=== PATIENT | female | born 1955 | race Caucasian/White ===

== ENCOUNTER → 2017-06-02 | Outpatient (CLI) | payer OTHER ==
[~2017-06-02] MED LIST: CIPR-255 PO; LEVO25TA5 PO; RANITAB33 PO
--- NOTE | 2017-06-03 07:38 | MAMMOGRAPHY REPORT ---
BILATERAL DIGITAL SCREENING MAMMOGRAM TOMOSYNTHESIS WITH CAD: 06/02/2017 CLINICAL HISTORY: Routine screening. TECHNIQUE: Breast tomosynthesis in addition to standard 2D mammography was performed. Current study was also evaluated with a Computer Aided Detection (CAD) system. COMPARISON: Comparison is made to exams dated: 05/29/2016 mammogram, 05/28/2015 mammogram, 05/24/2014 mamm ogram, 05/23/2013 mammogram, 05/20/2012 mammogram, and 05/19/2011 mammogram - [facility] BREAST COMPOSITION: There are scattered areas of fibroglandular density in both breasts. FINDINGS: There are stable intramammary lymph nodes in each upper outer quadrant. No suspicious mass , architectural distortion or cluster of microcalcifications is seen. IMPRESSION: ACR BI-RADS CATEGORY 1: NEGATIVE There is no mammographic evidence of malignancy. A 1 year screening mammogram is recommended. The pa tient will receive written notification of the results. Approximately 10% of breast cancers are not detected with mammography. A negative mammographic report should not delay biopsy if a clinically suggestive mass is present. Sandra Manzo M.D. ay/:06/02/2017 16:25:30 Hide Spreader: Adelina MARKS(Lesly)(Ignacio), [facility] letter sent: Normal 1/2 BI-RADS Code: ACR BI-RADS Category 1: Negative
== END | disposition home or self-care (01) ==
LOC: C.MAMM 08:56
PROVIDERS: ATTEND Family Medicine
DX: Z12.31 Encounter for screening mammogram for malignant neoplasm of breast (principal)

== ENCOUNTER → 2017-11-24 | Outpatient (CLI) | payer OTHER ==
[~2017-11-24] MED LIST changes: +OPTIRAY 320 IV PRN
--- NOTE | 2017-11-24 14:13 | DIAGNOSTIC IMAGING REPORT ---
(CHEST FOR PE) ANGIO WITH CLINICAL HISTORY: 62 years-old Female presenting with R04.2 [id number]. TECHNIQUE: Multidetector CT angiography of the chest was performed after administration of intravenous contrast. 3-D volumetric and/or maximum intensity projection (MIP) images were subsequently reconstructed for review. IV contrast: 83 mL of Optiray 320. A dose lowering technique was used consistent with the principles of ALARA (as low as reasonably achievable). COMPARISON: Chest CT from 07/29/2017. CT DOSE (mGy.cm): The estimated cumulative dose is 380.81 mGy.cm. FINDINGS: Equine Intern topogram: Cholecystectomy clips. Pulmonary vasculature: The study is adequate for assessment of the pulmonary vascular tree. No filling defect within the pulmonary arteries to suggest embolus. Main pulmonary artery is not enlarged. No flattening of the interventricular septum. No intracardiac filling defect. No reflux of contrast into the hepatic veins. Remaining chest: On soft tissue windows, normal thyroid and thoracic inlet. No axillary, supraclavicular, hilar, or mediastinal lymphadenopathy. Normal aorta. Mild multichamber enlargement of the heart. Coronary artery calcification. No pericardial or pleural effusion. Well-defined hypodensity in the right hepatic lobe likely hepatic cyst though indeterminate. Biliary ductal prominence suggested. On lung windows, minimal dependent changes likely atelectasis. Mosaic attenuation noted at the lung bases, which may be due to the phase of respiration or small airways disease. No other focal nodule or infiltrate. Mild lower lobe predominant bronchial wall thickening. On bone windows, degenerative changes of the spine. IMPRESSION: 1. No evidence of pulmonary embolus. 2. Mosaic attenuation at the lung bases could suggest small airways disease or may be due to the phase of respiration. 3. Mild lower lobe predominant bronchial wall thickening. This is not specific and can be seen in the setting of congestive change or bronchitis among other etiologies. 4. Mild cardiomegaly. Electronically signed by: Etienne Turner M.D. 11/24/2017 2:12 PM Dictated Date/Time: 11/24/2017 1:54 PM
== END | disposition home or self-care (01) ==
LOC: C.CTS 12:59
PROVIDERS: ATTEND Physician Assistant
DX: R04.2 Hemoptysis (principal); R91.8 Other nonspecific abnormal finding of lung field

== ENCOUNTER 2017-11-30 07:19 | Day surgery (SDC) | payer OTHER ==
[2017-11-30] VITALS (7 sets, daily range): BP systolic 126–166; BP diastolic 72–82; PULSE 61–77; TEMP 36.2–36.9; O2SAT 94–98; Ht 167.6 cm; Wt 81.8 kg
[~2017-11-30] VITALS: Ht 167.6 cm; Wt 81.8 kg
[~2017-11-30 07:19] MED LIST changes: -OPTIRAY 320 IV PRN
--- NOTE | 2017-11-30 07:31 | History and Physical ---
History & Physical Date of Service Nov 30, 2017. History & Physical 62-yo female presents today for bronchoscopic evaluation for her chronic cough with hemoptysis. 62-year-old female presents the office for continuation of care of hemoptysis. Prior records reviewed. PmHx includes: History of irritable bowel syndrome, migraine headaches, hypothyroid, GERD, and allergic rhinitis - lau emi. She does wear 1 liter of oxygen q.h.s. Exposures: - Remote h/o tobacco (quit ) with significant second hand exposure through father and co-workers. - Prior occupation: working in sterile processing in a hospital setting - patient compliant with respiratory protection, routine TB testing negative - x 5-years living with coal stove Beginning in the Summer 2016 patient developed symptoms of cough which progressed to become productive with associated wheeze and chest congestion. She reported sick contact - grandson without travel at that time. She denied any preceding symptoms of chronic cough/dyspnea/asthma/or frequent respiratory infections. Symptoms persisted despite benzoate. Chest congestion and wheeze resolved post 40mg prednisone x 5 days + azithromycin. Cough however persisted primarily in the mornings associated with streaks of bright red blood. No associated dyspnea, fevers, chills, pleuritic pain or dyspnea. CT Chest 07/29/17 with IV contrasted noted some atelectasis but otherwise was unremarkable. At the time of her initial evaluation, she reported clinical improvement. Cough remained presents in the AM however hemoptysis seemed to have discontinued. Bronchoscopy and further w/u offered= discussed and patient declined secondary to clinical improvement. Exam/interview today patient presents to follow-up her symptoms. She reports that her cough productive of scant blood tinged sputum past present in the morning has in fact persisted. This is very scant. She denies any associated epistaxis or chronic sinus problems. She denies any history of frequent emesis or retching. Today she does report history of coughing during p.o. intake. She is on Prilosec 20 milligram daily. She denies any davy symptoms of acid reflux or frequent belching. She denies any nocturnal symptoms of cough. She denies any chest pain or associated shortness of breath, MATHUR, fevers or chills. Review of Systems Constitutional: no fever, not feeling poorly, no chills and not feeling tired. Eyes: dryness of the eyes and itching of the eyes, but no eye pain and no eyesight problems. ENT: no earache, no nosebleeds, no sore throat, no nasal discharge and no hoarseness. Cardiovascular: no chest pain, no palpitations and no lower extremity edema. Respiratory: cough, but as noted in HPI, no shortness of breath, no orthopnea, no wheezing, no shortness of breath during exertion and no PND. Gastrointestinal: heartburn, but as noted in HPI and no abdominal pain. Musculoskeletal: negative. Psychiatric: no sleep disturbances. Hematologic/Lymphatic: no swollen glands, no tendency for easy bleeding, no tendency for easy bruising and no swollen glands in the neck. Past Medical History 1. History of allergic rhinitis 2. History of gastroesophageal reflux (GERD) 3. History of hypothyroidism 4. History of insomnia 5. History of menopause 6. History of migraine with aura Surgical History 1. History of colonoscopy 2. History of gallbladder surgery 3. History of hysterectomy 4. History of rotator cuff repair Family History 1. Family history of 2. Family history of diabetes mellitus 3. Family history of hypertension 4. Family history of 5. Family history of cerebrovascular accident (CVA) 6. Family history of diabetes mellitus 7. Family history of diabetes mellitus Social History Does not use smokeless tobacco Never smoker Current Meds 1. Fluzone Quadrivalent Intramuscular Suspension 2. Albuterol Sulfate (2.5 MG/3ML) 0.083% Inhalation Nebulization Solution; USE 1 UNIT DOSE IN NEBULIZER EVERY 4 TO 6 HOURS NEEDED 3. Benzonatate 100 MG Oral Capsule; TAKE 1 CAPSULE 3 TIMES DAILY 4. Cromolyn Sodium 4 % Ophthalmic Solution; INSTILL 1 DROP INTO EACH EYE 4 TIMES DAILY AT REGULAR INTERVALS 5. Imitrex 100 MG Oral Tablet; TAKE 1 TABLET AT ONSET OF MIGRAINE HEADACHE. MAY REPEAT IN 2 HOURS IF NEEDED 6. Levothyroxine Sodium 100 MCG Oral Tablet; TAKE 1 TABLET DAILY DIRECTED 7. Omeprazole 20 MG Oral Capsule Delayed Release; TAKE ONE CAPSULE BY MOUTH ONE EVERY OTHER DAY Allergies 1. Erythromycin Derivatives Immunizations Influenza --- Series1: -Jul-2017 Vital Signs Weight: 185 lb 4 oz BMI Calculated: 29.9 BSA Calculated: 1.94 Blood Pressure: 130 / 84 Heart Rate: 70 Respiration: 18 O2 Saturation: 97, RA Temperature: 98.2 F Physical Exam Constitutional: Well developed, well nourished female. No acute distress. Head: + facial symmetry Eyes: EOMi, PERRLA, no conjunctival injection Mouth: Mallampati [I]. No erythema, exudate, or post nasal gtt Neck: Trachea midline. No adenopathy or masses Respiratory: Non-labored respirations. No wheeze, rales or rhonchi. No clubbing or cyanosis. Cardiovascular: RRR, no MRG. +2 radial pulses. <1s capillary refill. Abdomen: soft, active bowel sounds Integumentary: no rashes, or ecchymosis MSK/Extremities: Moving and developed symmetrically. No edema. No calf tenderness. Neurologic: A&O, data recall in-tact. Appropriate affect.
--- NOTE | 2017-11-30 08:37 | Pre Sedation Assessment ---
Pre Sedation Assessment General Date of Sedation: Nov 30, 2017. Vital Signs Past 12 Hours Date Time Temp Pulse Resp B/P (MAP) Pulse Ox O2 Delivery O2 Flow Rate FiO2 11/30/17 08:12 36.5 77 18 166/79 (108) 97 Room Air Review Cardiovascular: regular rate, rhythm, no edema, no gallop, no JVD, no murmur, normal peripheral pulses Lungs: chest non-tender, lungs clear, normal breath sounds, no respiratory distress, no accessory muscle use Pre-Sedation Airway Assessment Smoking Status: Never Smoker Hx of Sleep Apnea: No Hx of difficult intubation: No Short Thick Neck: Yes Thyro-mental Distance: < or =3 Finger Breadths Oral Cavity: Dentures ASA Classification: Class II NPO Status Date of Last Intake of Fluids: Nov 29, 2017 Time of Last Intake of Fluids: 2199 Date of Last Intake of Solids: Nov 29, 2017 Time of Last Intake of Solids: 2199 Procedure Planning Contraindications for Sedation: None Current Medications Reviewed: Yes Notes The planned sedation has been discussed with the patient. Informed Consent was obtained. I have identified the patient, determined the appropriateness of sedation and have assessed the patient immediately prior to the procedure. All medicine(s) and interventions are by my order.
--- NOTE | 2017-11-30 08:37 | History & Physical Bridge Note ---
H&P Re-Evaluation Bridge Note: I have examined the patient, reviewed the History & Physical and in the interval since the performance of the History & Physical I have noted the following changes of clinical significance: No changes noted
[2017-11-30] MEDS ORDERED: LIDOCAINE VISCOUS 2% 100ML TOP ONE (09:00)
[2017-11-30] MEDS ORDERED: LIDOCAINE 4% INH SOLN 4 ML BTL TOP ONE (09:00)
[2017-11-30] MEDS ORDERED: LIDOCAINE HCL 2% LOCAL 50ML VIAL INSTIL ONE (09:15)
--- NOTE | 2017-11-30 09:40 | Bronchoscopy Procedure Note ---
Bronchoscopy Procedure Note Procedure: Bronchoscopy, conscious sedation, BAL RML Consent: Obtained through the patient placed into the chart Pre-procedural diagnosis: hemoptysis Post-procedural diagnosis: hemoptysis Start time: 908 End time: 928 Total time: 20 minutes Analgesia: 2% liquid lidocaine: Via nebulizer 4% gel lidocaine: Via right naris 2% liquid lidocaine: Via bronchoscopy Sedation: Versed IV: 3 mg Fentanyl IV: 50 g Procedure: The [employer] video bronchoscope was used for this procedure and passed down through the oral-pharynx and retro-flexed of the soft palet then passed through the right naris Posterior Naris: mildly erythematous Right naris/posterior oropharynx: Anatomically within normal limits Glottis: Anatomically within normal limits Vocal cords: Proper abduction and abduction, anatomically within normal limits Subglottis/trachea/Na: Anatomically within normal limits Right bronchial tree: Right mainstem bronchus: Anatomically within normal limits Right upper lobe: Anatomically within normal limits Bronchus intermedius: Anatomically within normal limits Right middle lobe: Anatomically within normal limits Right lower lobe: Anatomically within normal limits Findings: s/p bronchoscopy mild bleeding Left bronchial tree: Left mainstem bronchus: Anatomically within normal limits Left upper lobe: Anatomically within normal limits Lingula: Anatomically within normal limits Left lower lobe: Anatomically within normal limits Findings: No significant findings noted Bronchial Alveolar Lavage: RML EBL: 2cc Complications: None Follow-up: ASU
--- NOTE | 2017-11-30 09:41 | Post Sedation Assessment ---
Post Sedation Assessment General Date of Sedation Nov 30, 2017. Vital Signs: Vital Signs Past 12 Hours Date Time Temp Pulse Resp B/P (MAP) Pulse Ox O2 Delivery O2 Flow Rate FiO2 11/30/17 09:20 75 18 121/96 100 Mask 6 11/30/17 09:15 67 14 138/88 100 Mask 6 11/30/17 09:10 70 16 155/86 100 Mask 6 11/30/17 09:05 67 18 167/86 100 Mask 6 11/30/17 09:00 67 18 155/76 100 Mask 6 11/30/17 08:55 70 18 162/86 100 Mask 6 11/30/17 08:12 36.5 77 18 166/79 (108) 97 Room Air Post Procedure Recovery Score Activity: (2) Moves 4 extremities * Respiration: (2) Deep breath/cough Circulation: (2) +/-20% PreAnes Value Consciousness: (2) Fully Awake Oxygen Saturation: (2) > 92% On Room Air Discharge Sedation Level of Care: Phase I Post Sedation Plan On clinical assessment, the patient appears to have tolerated the sedation without complications. Patient is recovering as anticipated. Patient will continue to be monitored by nursing and may be discharged when sedation discharge criteria are met per below protocol. Upon Completions of procedure and additional 15 minutes continue every 5 minute vital signs and the P.A.R. score; then discharge to a Phase I or Fast Track to Phase II per the following guidelines: * Discharge Patient to appropriate Phase II area if PAR is 8 or greater or return to pre- procedure baseline. The post - procedure orders will be as directed. * If PAR score is less than 8 or not return to pre-procedure baseline then patient will follow Phase I monitoring till PAR is reached for Phase II. The Phase I may be done in procedure room or may call to secure a Phase I area. * If naloxone or flumazenil are used for reversal, hold in Phase I for an additional 60 -120 minutes before discharge to Phase II. Please call the Sedation Physician to re-evaluate and complete post-note for discharge to Phase II area. Do NOT discharge from procedure sedation or Phase 1 until post- sedation evaluation note is complete by procedure /sedation MD Sedation Discharge Instructions to be given to the patient at discharge to home.
--- NOTE | 2017-11-30 09:45 | Discharge Instructions ---
Discharge Instructions Date of Service Nov 30, 2017. Admission Reason for Admission: Hemoptysis Discharge Discharge Diagnosis / Problem: Hemoptysis Discharge Goals Goal(s): Diagnostic testing Activity Recommendations Activity Limitations: resume your previous activity . Instructions / Follow-Up Instructions / Follow-Up with provider Jasmina Rai from the [facility] Current Hospital Diet Patient's current hospital diet: Discharge Diet Recommended Diet: Regular Diet Procedures Procedures Performed: Bornchoscopy with bronchial lavage of the right middle lobe Pending Studies Studies pending at discharge: no Medical Emergencies . Who to Call and When: Medical Emergencies: If at any time you feel your situation is an emergency, please call 911 immediately. . Non-Emergent Contact Non-Emergency issues call your: Spanish Instructor . . "Provider Documentation" section prepared by Carlos Amezquita. . VTE Core Measure Inpt VTE Proph given/why not?: Treatment not indicated
[2017-11-30] MEDS ORDERED: MIDAZOLAM HCL 5 MG/ML 1 ML VIAL IV ONE (10:00)
[2017-11-30] MEDS ORDERED: FENTANYL CITRATE INJ 50 MCG/1 ML 2 ML VIAL IV ONE (10:00)
== END 2017-11-30 11:53 | disposition home or self-care (01) ==
LOC: C.ACU 07:19
PROVIDERS: ATTEND Internal Medicine Critical Care Medicine
DX: R04.2 Hemoptysis (principal); Z87.891 Personal history of nicotine dependence; K21.9 Gastro-esophageal reflux disease without esophagitis; E03.9 Hypothyroidism, unspecified; Z98.890 Other specified postprocedural states; Z90.710 Acquired absence of both cervix and uterus; Z83.3 Family history of diabetes mellitus; Z82.49 Family history of ischemic heart disease and other diseases of the circulatory system; Z82.3 Family history of stroke; Z79.899 Other long term (current) drug therapy; Z88.1 Allergy status to other antibiotic agents

== ENCOUNTER → 2017-12-01 | Outpatient (CLI) | payer OTHER ==
[~2017-12-01] MED LIST changes: -CIPR-255 PO
--- NOTE | 2017-12-01 12:10 | DIAGNOSTIC IMAGING REPORT ---
VIDEO SWALLOW HISTORY: Hemoptysis. TECHNIQUE: Video fluoroscopic evaluation of swallowing was performed in the AP and lateral projections by the speech pathology staff. The patient is fed nectar-thick and thin liquid barium, a barium coated wafer, and barium pudding. FLUOROSCOPY TIME: 1.5 minutes. A cine loop submitted. COMPARISON STUDY: None. FINDINGS: There is normal hyoid excursion and epiglottic deflection. No significant penetration or aspiration identified. Swallowing function is within normal limits. IMPRESSION: 1. No aspiration identified. 2. Please see the speech pathologist report for detailed findings and recommendations. Electronically signed by: Santiago Reynolds M.D. 12/01/2017 12:09 PM Dictated Date/Time: 12/01/2017 12:08 PM
--- NOTE | 2017-12-02 12:19 | SWALLOWING EVALUATION ---
HISTORY: This 62 year old woman was referred for a video swallow study at [facility] in order to rule out aspiration and identify the safest consistencies for optimal oral intake. The patient reports she has a persistent cough and this worsens while she is eating. PMH is significant for hypothyroidism, GERD with esophagitis, and diverticulosis. Current diet is regular. PROCEDURE: The patient was seen in the Radiology Department of [facility] for the VFSS. Cursory examination of the oral cavity revealed upper and lower dentures that fit well. Oral motor function was wnl. The patient was seated on a stool and was viewed in both the Anterior-Posterior (A-P) and Lateral planes. Volitional phonation exercises completed in the A-P plane revealed bilateral vocal fold movement and vocal intensity within functional limits. In the lateral plane, the patient was given the following boluses: 1 tsp. thin liquid barium x 2, single swallow thin liquid barium self-presented from a cup, sequential swallows of thin liquid barium self-presented from a straw, 1 tsp. nectar-thick liquid barium, single swallow nectar-thick liquid barium self-presented from a cup, 1 tsp. barium pudding, and 1 club cracker coated in barium pudding. The patient was then repositioned into the A-P plane and given the following boluses: 1 tsp. nectar thick barium and 1 tsp. barium pudding. A barium tablet was also administered. RESULTS: Oral Stage: Lip closure was adequate. The patient was able to maintain a cohesive liquid bolus in the oral cavity. Mastication was mildly prolonged. Lingual motion for bolus transport was brisk. There was trace retention lining the tongue and palate after the initial swallow. The initiation of the pharyngeal swallow occurred when the bolus head reached the valleculae. Pharyngeal Stage: Soft palate elevation was complete. Laryngeal elevation revealed complete superior movement of the thyroid cartilage with complete approximation of the arytenoids to the epiglottic base. Anterior hyoid excursion was partially reduced and epiglottic deflection was complete. Laryngeal vestibular closure was complete. The pharyngeal stripping wave was present and complete. Pharyngeal contraction was complete. There was complete distention and duration of the opening to the pharyngoesophageal segment (PES). Tongue base retraction was complete. There was no evidence of any significant retention after the swallow was complete. There was no evidence of laryngeal penetration or aspiration for this study. The pharyngeal stage of the swallow was wnl. Esophageal stage: There was complete esophageal clearance of all boluses presented. SUMMARY/RECOMMENDATIONS: This patient presents with normal argenis-pharyngeal swallowing mechanics. The following is recommended: 1. Regular diet and thin liquids. 2. Follow up with PCP with any worsening of symptoms. A summary of the results and recommendations was discussed with the patient immediately after the study with verbal understanding. Thank you for referral of this patient. Please contact me at if any additional information is needed.
== END | disposition home or self-care (01) ==
LOC: C.RAD 11:06
PROVIDERS: ATTEND Physician Assistant
DX: R04.2 Hemoptysis (principal)

== ENCOUNTER → 2017-12-03 | Outpatient (CLI) | payer OTHER | END | disposition home or self-care (01) | LOC: C.RC 10:24 | PROVIDERS: ATTEND Physician Assistant | DX: R05 Cough (principal) ==

== ENCOUNTER → 2018-01-01 | Outpatient (CLI) | payer OTHER ==
--- NOTE | 2018-01-02 06:00 | PAP/PSG TECHNICIAN REPORT ---
[facility] Merchandise Shopper Polysomnogram Report Study name: None Report date: 01/02/2018 Study date: 01/01/2018 Referring Physician: BRADLEY LINDSAY M.D. Name: EMELY FRY Interpreting Physician: Trevon Tinoco M.D. Date of : 1955 Merchandise Shopper: Merissa Cain, PSGT. Sex: Female Age: 62 StudyType: PSG Weight: 187 lbs Height: 62 years, Height 5' 6" Neck Circum: BMI: 30.18 Medications: Ranitidine 150 mg, Albuterol, Benzonatate 100 mg, Cromolyn 4 %Imitrex 100 mg, Levothyroxine 100 mcg, Omeprazole 20 mg. Patient History 62 yr. old female here for a baseline sleep study. Dyana had a sleep study done many years ago was told she didnt have sleep apnea, but did have nocturnal hypxemia and was started on 1 liter of oxygen at that time during the night.ESS=3, Neck =14 inches. Parameters Monitored NPSG: E1-M2, E2-M1, Fp1-M2, Fp2-M1, F3-M2, F4-M2, F4-M1, C3-M2, C4-M2, C4-M1, O1-M2, O2-M2, O2-M1, T3-M2, T4-M1, P3-M2, P4-M1, CHIN1, CHIN2, HR, EKG, Legs, PFLOW, SNOR, FLOW, CFLOW, Tidal Volume, THOR, ABDO, SpO2, PLTH, CPRESS, ETCO2 Wave, ETCO2, pH Sleep Architecture Sleep Stages Time at Lights Off 10:59:27 PM STAGES Time (min.) TST (%) Time at Lights On 5:20:27 AM Wake 103.5 -- Total Recording Time (TRT) 381.50 min. N1 6.0 2 Total Sleep Period (TSP) 306.0 min. N2 190.5 69 Total Sleep Time (TST) 277.0min. N3 6.0 2 Awake Time 104.5 min. REM 74.5 27 Wake after Sleep Onset 68.0 min. Sleep Efficiency (SE) 73 % Sleep Onset Latency (JOSEPH) 36.0 min. Number of Stage 1 Shifts None Awakenings 5 Stage Changes 22 Number of REM periods 4 REM 74.5 27 REM Latency 65.0 min. NREM 202.5 73 Body Position Analysis Supine Right Left Side Prone Vertical Total Sleep Time (min.) 148.8 147.5 0.0 147.50 0.0 0.0 Total Sleep Time (%) 47% 53% 0% 53 0% N/A% Total Sleep Time REM (min.) 28.5 46.0 0.0 None 0.0 0.0 Total Sleep Time NREM (min.) 101.0 101.5 0.0 None 0.0 0.0 Intermittent Wake (min.) 19.3 84.2 0.0 None 0.0 0.0 Total Sleep Period (%) 48% None None None None None Arousals Myoclonus (PLM) * Events Count Index Events Count Index Spontaneous 23 5 Events Awake (PLMW) 0 0.0 Respiratory 3 0.6 Events Asleep w/ Arousal (PLMA) 3 0.6 PLM 3 1 Events Asleep w/o Arousal (PLMS) 58 12.6 Snoring 9 2 Total Asleep 61 13.2 Total 38 8 Total 61 10 Respiratory Analysis * CA OA MA CH H RERA Total Count 0 0 0 0 74 0 74 Index 0.0 0.0 0.0 0 16.0 0 16.0 Mean Duration 0.0 0.0 0.0 0.00 17.6 0.0 17.6 Longest Duration 0.0 0.0 0.0 0.00 0.0 0.0 48.4 Respiratory Event Summary Total Supine ~Supine Right Left Prone REM NREM Apneas Count 0 0 0 0 N/A N/A 0 0 Index 0.0 0 0 0.0 N/A N/A 0 0 Hypopneas (4% Desat) Count 74 55 19 19 N/A N/A 36 38 Index 16.0 25.5 8 7.7 N/A N/A 29.0 11.3 Apneas & All Hypopneas Count 74 55 19 19 N/A N/A 36 38 Index 16.0 25 8 8 N/A N/A 29.0 11.3 Respiratory Events (Rate Setter+All Hyp+RERA) Count 74 55 19 19 N/A N/A 36 38 Index 16.0 25 8 7.7 N/A N/A 29.0 11.3 Respiratory Related Arousal Count 3 55 1 1 N/A N/A 1 2 Index 0.6 1 0 0 N/A N/A 1 1 Snoring Analysis Supine Right Left Prone REM NREM Total Snore duration 34.1 min Snores count 819 556 N/A N/A 189 1,186 1,375 Snore mean duration 1.5 Sec Snores index 379 226 N/A N/A 152.2 351.4 297.8 TST with snoring (%) 12.3% Desaturation Event Summary: Minimum %SpO2 Event Count Mean/Min/Max Duration(sec.) Desaturation Index % Time In Bed > 90 67 25.0 / 7.8 / 56.3 16.0 68.3 86 - 90 22 24.7 / 7.8 / 54.5 11.6 31.0 81 - 85 0 N/A 0.0 0.7 76 - 80 0 N/A 0.0 0.0 71 - 75 0 N/A 0.0 0.0 66 - 70 0 N/A 0.0 0.0 61 - 65 0 N/A 0.0 0.0 56 - 60 0 N/A 0.0 0.0 51 - 55 0 N/A 0.0 0.0 < 50 0 N/A 0.0 0.0 Total REM NREM Awake <50% 0.0 min. 0.0 min. 0.0 min. 0.0 min. 51 - 60% 0.0 min. 0.0 min. 0.0 min. 0.0 min. 61 - 70% 0.0 min. 0.0 min. 0.0 min. 0.0 min. 71 - 80% 0.0 min. 0.0 min. 0.0 min. 0.0 min. 81 - 90% 117.0 min. 31.6 min. 74.7 min. 10.7 min. 91 - 100% 251.5 min. 42.9 min. 127.7 min. 80.9 min. Average 91 91 91 93 Minimum SpO2 83 83 86 89 Desaturation Event Index 12.0 28.2 12.1 0.0 # Desat. Events below 89% 37 27 10 N/A Time(%) with Saturation below 89% 4.5 3.9 0.7 0.0 Time(min.) with Saturation below 89% 16.7 14.2 2.4 0.0 Time (mins) REM (mins) NREM (mins) % of TST SpO2 Below 90% 66 31 N35 14.6 SpO2 Below 88% 16 0 0 3 Heart Rate Analysis Min (bpm) Max (bpm) Average (bpm) Awake 66 127 75 NREM 67 87 75 REM 69 89 77 Overall 67 89 76 Supplemental O2 Values Minimum O2 level: None Value Start Time End Time Merchandise Shopper Comments Therapy (cm H2O) 0 TIB (min.) 380.5 TST (min.) 277.0 Sleep Onset (min.) 36.0 REM Onset From Sleep (min.) 65.0 Sleep Efficiency % 73 Wakefulness (%) 27 Wakefulness (min.) 104.5 NREM 1 (%) 2 NREM 1 (min.) 6.0 NREM 2 (%) 69 NREM 2 (min.) 190.5 NREM 3 (%) 2 NREM 3 (min.) 6.0 REM (%) 27 REM (min.) 74.5 # Arousals 38 Arousal Index 8 # Snore 1,375 Snore Index 297.8 AHI 16.0 AHI Supine 25 AHI Non-Supine 8 NREM AHI 11.3 REM AHI 29.0 RDI 16.0 # Obstructive Apnea 0 # Central Apnea 0 # Mixed Apnea 0 # Hypopneas 74 RERAs 0 Total Respiratory Events 74 Time Below SpO2 89% (min.) 16.7 Mean NREM SpO2 (%) 91 Mean REM SpO2 (%) 91 Mean Sleep SpO2 (%) 91 Min NREM SpO2 (%) 86 Min REM SpO2 (%) 83 Position Supine (min.) 148.8 Position Non-supine (min.) 147.5 LM Index Sleep 13.2 LM Index NREM 10.7 LM Index REM 20.1 Mean Heart Rate (bpm) 76 Min Heart Rate (bpm) 67
--- NOTE | 2018-01-02 06:01 | PAP/PSG TECHNICIAN REPORT ---
[facility] Courtroom Deputy Or Calendar Clerk Polysomnogram Report Study name: None Report date: 01/02/2018 Study date: 01/01/2018 Referring Physician: BRADLEY LINDSAY M.D. Name: EMELY NOONAN Interpreting Physician: Trevon Tinoco M.D. Date of : 1955 Courtroom Deputy Or Calendar Clerk: Merissa Cain, PSGT. Sex: Female Age: 62 StudyType: PSG Weight: 187 lbs Height: 62 years, Height 5' 6" Neck Circum:14 inches BMI: 30.18 Medications: Ranitidine 150 mg, Albuterol, Benzonatate 100 mg, Cromolyn 4 %Imitrex 100 mg, Levothyroxine 100 mcg, Omeprazole 20 mg. Patient History 62 yr. old female here for a baseline sleep study. Patient had a sleep study done many years ago was told she didn't have sleep apnea but did have nocturnal hypoxemia and was started on 1 liter of oxygen at that time during the night.ESS=3, Neck =14 inches. This study will be done on room air. Parameters Monitored NPSG: E1-M2, E2-M1, Fp1-M2, Fp2-M1, F3-M2, F4-M2, F4-M1, C3-M2, C4-M2, C4-M1, O1-M2, O2-M2, O2-M1, T3-M2, T4-M1, P3-M2, P4-M1, CHIN1, CHIN2, HR, EKG, Legs, PFLOW, SNOR, FLOW, CFLOW, Tidal Volume, THOR, ABDO, SpO2, PLTH, CPRESS, ETCO2 Wave, ETCO2, pH Sleep Architecture Sleep Stages Time at Lights Off 10:59:27 PM STAGES Time (min.) TST (%) Time at Lights On 5:20:27 AM Wake 103.5 -- Total Recording Time (TRT) 381.50 min. N1 6.0 2 Total Sleep Period (TSP) 306.0 min. N2 190.5 69 Total Sleep Time (TST) 277.0min. N3 6.0 2 Awake Time 104.5 min. REM 74.5 27 Wake after Sleep Onset 68.0 min. Sleep Efficiency (SE) 73 % Sleep Onset Latency (JOSEPH) 36.0 min. Number of Stage 1 Shifts None Awakenings 5 Stage Changes 22 Number of REM periods 4 REM 74.5 27 REM Latency 65.0 min. NREM 202.5 73 Body Position Analysis Supine Right Left Side Prone Vertical Total Sleep Time (min.) 148.8 147.5 0.0 147.50 0.0 0.0 Total Sleep Time (%) 47% 53% 0% 53 0% N/A% Total Sleep Time REM (min.) 28.5 46.0 0.0 None 0.0 0.0 Total Sleep Time NREM (min.) 101.0 101.5 0.0 None 0.0 0.0 Intermittent Wake (min.) 19.3 84.2 0.0 None 0.0 0.0 Total Sleep Period (%) 48% None None None None None Arousals Myoclonus (PLM) * Events Count Index Events Count Index Spontaneous 23 5 Events Awake (PLMW) 0 0.0 Respiratory 3 0.6 Events Asleep w/ Arousal (PLMA) 3 0.6 PLM 3 1 Events Asleep w/o Arousal (PLMS) 58 12.6 Snoring 9 2 Total Asleep 61 13.2 Total 38 8 Total 61 10 Respiratory Analysis * CA OA MA CH H RERA Total Count 0 0 0 0 74 0 74 Index 0.0 0.0 0.0 0 16.0 0 16.0 Mean Duration 0.0 0.0 0.0 0.00 17.6 0.0 17.6 Longest Duration 0.0 0.0 0.0 0.00 0.0 0.0 48.4 Respiratory Event Summary Total Supine ~Supine Right Left Prone REM NREM Apneas Count 0 0 0 0 N/A N/A 0 0 Index 0.0 0 0 0.0 N/A N/A 0 0 Hypopneas (4% Desat) Count 74 55 19 19 N/A N/A 36 38 Index 16.0 25.5 8 7.7 N/A N/A 29.0 11.3 Apneas & All Hypopneas Count 74 55 19 19 N/A N/A 36 38 Index 16.0 25 8 8 N/A N/A 29.0 11.3 Respiratory Events (Sheep Rancher+All Hyp+RERA) Count 74 55 19 19 N/A N/A 36 38 Index 16.0 25 8 7.7 N/A N/A 29.0 11.3 Respiratory Related Arousal Count 3 55 1 1 N/A N/A 1 2 Index 0.6 1 0 0 N/A N/A 1 1 Snoring Analysis Supine Right Left Prone REM NREM Total Snore duration 34.1 min Snores count 819 556 N/A N/A 189 1,186 1,375 Snore mean duration 1.5 Sec Snores index 379 226 N/A N/A 152.2 351.4 297.8 TST with snoring (%) 12.3% Desaturation Event Summary: Minimum %SpO2 Event Count Mean/Min/Max Duration(sec.) Desaturation Index % Time In Bed > 90 67 25.0 / 7.8 / 56.3 16.0 68.3 86 - 90 22 24.7 / 7.8 / 54.5 11.6 31.0 81 - 85 0 N/A 0.0 0.7 76 - 80 0 N/A 0.0 0.0 71 - 75 0 N/A 0.0 0.0 66 - 70 0 N/A 0.0 0.0 61 - 65 0 N/A 0.0 0.0 56 - 60 0 N/A 0.0 0.0 51 - 55 0 N/A 0.0 0.0 < 50 0 N/A 0.0 0.0 Total REM NREM Awake <50% 0.0 min. 0.0 min. 0.0 min. 0.0 min. 51 - 60% 0.0 min. 0.0 min. 0.0 min. 0.0 min. 61 - 70% 0.0 min. 0.0 min. 0.0 min. 0.0 min. 71 - 80% 0.0 min. 0.0 min. 0.0 min. 0.0 min. 81 - 90% 117.0 min. 31.6 min. 74.7 min. 10.7 min. 91 - 100% 251.5 min. 42.9 min. 127.7 min. 80.9 min. Average 91 91 91 93 Minimum SpO2 83 83 86 89 Desaturation Event Index 12.0 28.2 12.1 0.0 # Desat. Events below 89% 37 27 10 N/A Time(%) with Saturation below 89% 4.5 3.9 0.7 0.0 Time(min.) with Saturation below 89% 16.7 14.2 2.4 0.0 Time (mins) REM (mins) NREM (mins) % of TST SpO2 Below 90% 66 31 N35 14.6 SpO2 Below 88% 16 0 0 3 Heart Rate Analysis Min (bpm) Max (bpm) Average (bpm) Awake 66 127 75 NREM 67 87 75 REM 69 89 77 Overall 67 89 76 Supplemental O2 Values Minimum O2 level: None Value Start Time End Time Courtroom Deputy Or Calendar Clerk Comments PSG Study MS. Noonan slept in the right, left, and supine positions. No cardiac arrhythmia or PLM's noted. No bruxism noted. Snoring was noted and scored as a 3 on a scale of 1 through 5. (0=no snoring, 5=snoring loud enough to be heard through a closed door or down the muro way) Ms. Noonan awoke to use the restroom zero times during the night. Ms. Noonan stated, I did not sleep as well as I do when I am in my own bed. The final report will be interpreted and signed by a sleep physician. The completed physician report will then be placed in the patient medical record. Therapy (cm H2O) 0 TIB (min.) 380.5 TST (min.) 277.0 Sleep Onset (min.) 36.0 REM Onset From Sleep (min.) 65.0 Sleep Efficiency % 73 Wakefulness (%) 27 Wakefulness (min.) 104.5 NREM 1 (%) 2 NREM 1 (min.) 6.0 NREM 2 (%) 69 NREM 2 (min.) 190.5 NREM 3 (%) 2 NREM 3 (min.) 6.0 REM (%) 27 REM (min.) 74.5 # Arousals 38 Arousal Index 8 # Snore 1,375 Snore Index 297.8 AHI 16.0 AHI Supine 25 AHI Non-Supine 8 NREM AHI 11.3 REM AHI 29.0 RDI 16.0 # Obstructive Apnea 0 # Central Apnea 0 # Mixed Apnea 0 # Hypopneas 74 RERAs 0 Total Respiratory Events 74 Time Below SpO2 89% (min.) 16.7 Mean NREM SpO2 (%) 91 Mean REM SpO2 (%) 91 Mean Sleep SpO2 (%) 91 Min NREM SpO2 (%) 86 Min REM SpO2 (%) 83 Position Supine (min.) 148.8 Position Non-supine (min.) 147.5 LM Index Sleep 13.2 LM Index NREM 10.7 LM Index REM 20.1 Mean Heart Rate (bpm) 76 Min Heart Rate (bpm) 67
--- NOTE | 2018-01-05 16:19 | POLYSOMNOGRAPH REPORT ---
CLINICAL DATA: A 62-year-old female with a BMI of 30.18, referred by Dr. Barbosa, Dr. Amezquita and Jasmina Rai for baseline sleep study. She did have a PSG done years ago which was negative for sleep apnea but did show nocturnal hypoxemia. She was started on oxygen at 1 liter per minute. Her Lyles sleepiness score was 3/24. SLEEP ARCHITECTURE: Total sleep period was 306 minutes. Total sleep time was 277 minutes divided between 202.5 minutes of non-REM sleep and 74.5 minutes of REM sleep. Sleep onset latency was 36 minutes. REM latency was 65 minutes. Sleep efficiency was 73%. Wake after sleep onset was 68 minutes. Sleep consisted of stage N1 2%, stage N2 69%, stage N3 2%, and REM 27%. AROUSAL DATA: Thirty eight arousals were recorded for an index of 8 per hour. PERIODIC LIMB MOVEMENT DATA: Sixty one limb movements during sleep were noted for an index of 13.2 per hour with arousals 0.6 per hour. RESPIRATORY DATA: Moderate sleep apnea was documented. The AHI was 16. There were 74 hypopneic episodes with a mean duration of 17.6 seconds. OXIMETRY DATA: Nocturnal hypoxemia was seen. Oxygen yuniel was 83% during REM. The mean saturation was 91%. Time below 88% and 16 minutes. ECHOCARDIOGRAM: Heart rates ranged from 60-89 beats per minute. No arrhythmias were noted. PATIENT COORDINATOR FRONT DESK'S COMMENTS: The patient slept in the right, left, and supine positions. Snoring was moderate, rated 3 on a scale of 1-5. IMPRESSION: Moderate obstructive sleep apnea/hypopnea with an apnea/hypopnea index of 16 with nocturnal hypoxemia. RECOMMENDATIONS: The patient may benefit from a repeat sleep study with CPAP, use of auto CPAP, or possibly use of an oral appliance. Clinical correlation is needed.
== END | disposition home or self-care (01) ==
LOC: C.NEUR 21:00
PROVIDERS: ATTEND Physician Assistant
DX: G47.34 Idiopathic sleep related nonobstructive alveolar hypoventilation (principal); G47.33 Obstructive sleep apnea (adult) (pediatric)

== ENCOUNTER → 2018-01-18 | Outpatient (CLI) | payer OTHER ==
[2018-01-18 10:03] LABS: BASO % 1.3 %; BASO ABS # 0.06 K/uL (0-0.2); EOS % 6.9 %; EOS ABS # 0.31 K/uL (0-0.5); HEMATOCRIT 45.5 % (37-47); HEMOGLOBIN 15.3 g/dL (12.0-16.0); LYMPH % 34.7 %; LYMPH ABS # 1.56 K/uL (1.2-3.4); MEAN CELL VOLUME 85.7 fL (80-100); MEAN CORPUSCULAR HEMOGLOBIN 28.8 pg (25-34); MEAN CORPUSCULAR HGB CONC 33.6 g/dl (32-36); MEAN PLATELET VOLUME 9.8 fL (7.4-10.4); MONO % 9.1 %; MONO ABS # 0.41 K/uL (0.11-0.59); NEUT ABS # 2.16 K/uL (1.4-6.5); PLATELET COUNT 207 K/uL (130-400); RED CELL DISTRIBUTION WIDTH SD 43.1 fL (36.4-46.3)
[2018-01-18 10:20] LABS: PTT PATIENT 27.7 SECONDS (21.0-31.0)
[2018-01-18 10:38] LABS: ALBUMIN 3.6 gm/dl (3.4-5.0); ALT/SGPT 20 U/L (12-78); AST/SGOT 13 U/L (15-37); BLOOD UREA NITROGEN 15 mg/dl (7-18); CALCIUM 9.3 mg/dl (8.5-10.1); CARBON DIOXIDE 30 mmol/L (21-32); CREATININE 0.72 mg/dl (0.60-1.20); GLUCOSE 99 mg/dl (70-99); POTASSIUM 3.9 mmol/L (3.5-5.1); SODIUM 140 mmol/L (136-145)
[2018-01-18 10:40] LABS: ALKALINE PHOSPHATASE 77 U/L (45-117); TOTAL PROTEIN 7.4 gm/dl (6.4-8.2)
[2018-01-20 14:10] LABS: QUANTIF MITOGEN-NIL 8.56 IU/ML; QUANTIFERON NEGATIVE (NEGATIVE); QUANTIFERON NIL 0.04 IU/ML
== END | disposition home or self-care (01) ==
LOC: C.LAB1850 08:53
PROVIDERS: ATTEND Physician Assistant
DX: R04.2 Hemoptysis (principal)